=== PATIENT | male | born 1975 | race Caucasian/White ===

== ENCOUNTER 2022-11-19 20:29 | Emergency (ER) | payer SELFPAY ==
[2022-11-19 21:17] LABS: #Basophils 0.1 thou/uL (0.0-0.2); #Eosinphils 0.2 thou/uL (0.0-0.7); #Lymphocytes 1.2 thou/uL (1.20-3.40); #Monocytes 0.6 thou/uL (0.11-0.59); #Neutrophils 3.4 thou/uL (1.40-6.50); %Eosinophils 3.7 % (0.0-10.0); %Lymphocytes 23.2 % (21.0-51.0); %Monocytes 9.4 % (0.0-10.0); %Neutrophils 61.6 % (42.0-75.0); Hemoglobin 15.6 g/dL (14.0-18.0); Mean Corpuscular HGB CONC 34.2 g/dL (32.0-36.0); Mean Corpuscular Hemoglobin 34.5 pg (27.0-31.0); Mean Platelet Volume 6.9 fL (7.4-10.4); Platelet Count 139 10x3/uL (130-400); RBC Distribution Width 11.9 % (11.5-14.5); Red Blood Cell (RBC) Count 4.47 mill/uL (4.70-6.10); White Blood Cell (WBC) Count 5.4 10x3/uL (4.8-10.8)
[2022-11-19] MEDS ORDERED: predniSONE 20 MG TAB ONE (21:23)
[2022-11-19] MEDS ORDERED: Ondansetron ODT 4 MG TAB ONE (21:23)
[2022-11-19 21:29] LABS: ALT (SGPT) 55 U/L (8-55); AST (SGOT) 65 U/L (5-34); Acetaminophen Less than 10.0 mcg/mL (10.0-30.0); Albumin 4.4 g/dL (3.5-5.0); Alcohol 173 mg/dL (Less than 10); Alkaline Phosphatase 88 U/L (40-110); Anion Gap 17 mmol/L (10-20); BUN (Urea Nitrogen) 7 mg/dL (8.9-20.6); Bilirubin Negative (Negative); Bilirubin, Total 0.9 mg/dL (0.2-1.2); Blood, Urine Negative (Negative); Calc. Creatinine Clearance 0 mL/min (70-130); Calcium 9.4 mg/dL (7.8-10.44); Carbon Dioxide 22 mmol/L (22-29); Chloride 105 mmol/L (98-107); Clarity Clear (Clear); Estimated GFR 102; Globulin 3.4 g/dL (2.4-3.5); Glucose 88 mg/dL (70-105); Glucose, Urine (Dipstick) Negative (Negative); Ketone, Urine Negative (Negative); Leukocyte Negative (Negative); Nitrite Negative (Negative); Potassium 4.2 mmol/L (3.5-5.1); Protein, Total 7.8 g/dL (6.0-8.3); Protein, Urine (Dipstick) Negative (Neg-Trace); Salicylate Less than 8.0 mg/dL (15.0-30.0); Sodium 140 mmol/L (136-145); Urobilinogen > or = 8.0 mg/dL (Less than 2)
[2022-11-19 21:31] LABS: Amphetamine Not Detected (NotDetected); Barbiturates Screen Not Detected (NotDetected); Benzodiazepine Screen Not Detected (NotDetected); Cocaine Metabolite Screen Not Detected (NotDetected); Methadone Not Detected (NotDetected); Methamphetamine Not Detected (NotDetected); Opiate Screen Not Detected (NotDetected); Oxycodone Screen Not Detected (NotDetected); Phencyclidine (PCP) Not Detected (NotDetected); THC/Cannabinoid Screen Not Detected (NotDetected); Tricyclic Screen Not Detected (NotDetected)
== END 2022-11-19 21:45 | disposition home or self-care (01) ==
LOC: BURERS 20:29
DX: F10.129 Alcohol abuse with intoxication, unspecified (principal); L30.9 Dermatitis, unspecified; F17.290 Nicotine dependence, other tobacco product, uncomplicated
CPT/HCPCS: 80053; 80306; 80307; 81003; 85025; 99284; J7512; Q0162